=== PATIENT | male | born 1985 | race Caucasian/White ===

== ENCOUNTER 2021-04-17 14:23 | Emergency (ER) | payer SELFPAY ==
[2021-04-17] MEDS ORDERED: METHOCARBAMOL500 M1 PO (19:08)
[2021-04-17] MEDS ORDERED: PREDNISONE20 M1 PO (19:08)
== END 2021-04-17 19:30 | disposition home or self-care (01) ==
LOC: ED 14:23
DX: M54.41 Lumbago with sciatica, right side (principal)